=== PATIENT | male | born 1965 | race Caucasian/White ===

== ENCOUNTER → 2020-05-18 | Outpatient (REF) ==
[~2020-05-18] MED LIST: COLACE 100100 MG/CAP PO; DIFLUCAN 100MG100 MG PO; GLUCOSE TEST ST1 DEV MC; HUMALOG PEN100 U/ML SC; LEVAQUIN 5500 MG/TA1 PO; LEVEMIR FLEX100 U/ML SQ; NO HOME MEDICATIONS; NORCO 325 MG-7.1 TAB PO; NOVOLOG FLEX100 U/ML SC
== END ==
LOC: ZLAB.WCH 09:40
DX: Z01.89 Encounter for other specified special examinations (principal)

== ENCOUNTER 2023-08-18 14:01 | Emergency (ER) | payer BC ==
[~2023-08-18] VITALS: Ht 180.3 cm; Wt 157.3 kg
[~2023-08-18 14:01] MED LIST changes: +CEPHALEXIN500 M1 PO; +DOXYCYCLINE 10100 MG PO; +GLUCOPHAGE XR500 M1 PO; +GLUCOTROL10 MG PO; +LASIX 20MG TABL20 MG PO; +LIPITOR20 MG PO; +NEURONTIN100 MG/CAP PO; +PERCOCET 325 MG1 TAB PO; +PREDNISONE50 MG PO; +PRINIVIL10 MG PO; +SOLIQUA 100 UNIT3 ML INJ
[2023-08-18 14:05] VITALS: TEMP 97.5
[2023-08-18] MEDS ORDERED: LIDODERM 5% PATC1 EA TP (14:33)
[2023-08-18] MEDS ORDERED: PREDNISONE50 MG PO (14:33)
[2023-08-18] MEDS ORDERED: ROXICODONE 55 MG/TAB PO (14:33)
[2023-08-18 14:43] VITALS: BP 150/81; PULSE 80
== END 2023-08-18 14:43 | disposition home or self-care (01) ==
LOC: COL.ER 14:01
DX: M25.512 Pain in left shoulder (principal)